=== PATIENT | female | born 1950 | race Caucasian/White ===

== ENCOUNTER → 2016-12-21 | Outpatient (CLI) | payer MEDICARE ==
[~2016-12-21] MED LIST: ADVIL DPS200 MG PO; AMLODIPINE-VAL1 EAC2 PO; ASA CHILDREN'S81 MG PO; CARAFATE D1 GM/10 ML PO; HUMALOG U-100 UNITS/ SQ; HYDROCHLOROTHIA25 MG PO; LANTUS100 UNITS/ SQ; LEVO-T100 MCG PO; LEXAPRO20 MG PO; LIPITOR DPS20 MG PO; MAALOX DPS30 ML PO; NEURONTIN DPS100 MG PO; NITROSTAT0.4 MG SL; PREVACID30 MG PO; TIMOPTIC 0.5% DP5 ML OU; TOPROL XL DPS50 MG PO; TYLENOL DPS325 MG PO; XANAX DPS0.25 MG PO; ZANTAC DPS150 MG PO; ZYRTEC DPS10 MG PO
== END | disposition home or self-care (01) ==
LOC: RAD.S 13:24
DX: Z12.31 Encounter for screening mammogram for malignant neoplasm of breast (principal)